=== PATIENT | male | born 1950 | race Caucasian/White ===

== ENCOUNTER 2019-10-27 18:08 | Emergency (ER) | payer MEDICARE, OTHER ==
[2019-10-27] MEDS ORDERED: Adacel (T-DAP) 0.5 ML SYRINGE ONE (18:38)
[2019-10-27] MEDS ORDERED: Lidocaine 2% 10 ML INJ ONE (18:54)
[2019-10-27] MEDS ORDERED: Bupivacaine 0.5% 10 ML VIAL ONE (18:55)
--- NOTE | 2019-10-27 18:57 | RAD ---
EXAM: XR Finger(s) Rt Min 2 View DATE: 10/27/2019 6:20 PM INDICATION: Crush injury to the right long finger COMPARISON: None. FINDING: There is a comminuted fracture involving the residual base of the right long finger distal phalanx. Majority of the right long finger distal phalanx has been completely amputated and is not visualized within the [id number]. The soft tissues of the distal tip of the right long finger are also completely amputated. No additional acute osseous abnormality is evident. IMPRESSION:Complete amputation of the distal to mid portion of the right long finger distal phalanx w ith associated complete soft tissue amputation. There is a comminuted fracture involving the residual base of the right distal phalanx.
--- NOTE | 2019-10-27 19:01 | RAD ---
XR Hand Rt 3 View STANDARD: 10/27/2019 6:16 PM CLINICAL INDICATION: Crush injury to the right long finger COMPARISON: None. FINDINGS: Bones: There is an incomplete segmentation of the distal phalanx of the right long finger with compl ete amputation of the soft tissues of the distal aspect of the right long finger. There is a comminuted fracture involving the residual base of the right long finger distal phalanx. 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 Soft Tissue: There is complete amputation the distal tip of the right long finger IMPRESSION: Complete amputation of the distal aspect of the right long finger through the distal phalangeal base. The residual distal phalangeal base has a comminuted fracture..
== END 2019-10-27 20:30 | disposition home or self-care (01) ==
LOC: ERS 18:08
DX: S68.112A Complete traumatic metacarpophalangeal amputation of right middle finger, initial encounter (principal); Z87.891 Personal history of nicotine dependence; Z79.899 Other long term (current) drug therapy; W30.89XA Contact with other specified agricultural machinery, initial encounter
CPT/HCPCS: 12042; 90471; 90715; J2001; J3490